=== PATIENT | male | born 1975 | race Caucasian/White ===

== ENCOUNTER 2018-08-20 11:17 | Emergency (ER) | payer BC ==
[2018-08-20 11:28] VITALS: BP 148/79
--- NOTE | 2018-08-20 11:55 | ED ---
HPI Chest Pain - HPI Summary HPI Summary: 43 yr old male with the complaint of chest pain. Onset of pain on and off since 4 days ago. The patient has had some palpitations, and dizziness. The patient has not had syncope. He complains of pain in the center of his chest, ache like. He has a family history of CAD. - History of Current Complaint Chief Complaint: UCChestPain Time Seen by Provider: 08/20/18 11:28 Pain Intensity: 2 - Allergy/Home Medications Allergies/Adverse Reactions: Allergies Allergy/AdvReac Type Severity Reaction Status Date / Time Penicillins Allergy Rash Verified 08/20/18 11:22 Home Medications: Home Medications Aspirin TAB* [Aspirin 325 MG TAB*] 325 mg PO DAILY 08/20/18 [History Confirmed 08/20/18] Cetirizine* [ZyrTEC 10 MG TAB*] 10 mg PO DAILY 08/20/18 [History Confirmed 08/20] PMH/Surg Hx/FS Hx/Imm Hx Infectious Disease History: No Infectious Disease History: Denies: Traveled Outside the [place] in Last 30 Days - Family History Known Family History: Positive: None - Social History Alcohol Use: Daily Alcohol Amount: 1 to 6 beers Substance Use Type: Reports: None Smoking Status (MU): Never Smoked Tobacco Review of Systems Positive: Chest Pain Positive: Shortness Of Breath All Other Systems Reviewed And Are Negative: Yes Physical Exam Triage Information Reviewed: Yes Vital Signs On Initial Exam: Initial Vitals Temp Pulse Resp BP Pulse Ox 98.6 F 84 18 148/79 99 08/20/18 11:19 08/20/18 11:19 08/20/18 11:19 08/20/18 11:19 08/20/18 11:19 Vital Signs Reviewed: Yes Appearance: Positive: Well-Appearing, No Pain Distress Skin: Positive: Warm, Skin Color Reflects Adequate Perfusion Head/Face: Positive: Normal Head/Face Inspection Eyes: Positive: EOMI ENT: Positive: Normal ENT inspection, TMs normal Neck: Positive: Nontender Respiratory/Lung Sounds: Positive: Clear to Auscultation, Breath Sounds Present Cardiovascular: Positive: RRR. Negative: Murmur Abdomen Description: Negative: Distended Musculoskeletal: Positive: Strength/ROM Intact. Negative: Edema Left, Edema Right Neurological: Positive: Normal, Sensory/Motor Intact, Alert, Oriented to Person Place, Time, CN Intact II-III, Normal Gait. Negative: Speech Normal Psychiatric: Positive: Normal - [place] Coma Scale Best Eye Response: 4 - Spontaneous Best Motor Response: 6 - Obeys Commands Best Verbal Response: 5 - Oriented Coma Scale Total: 15 Diagnostics - Vital Signs Vital Signs Temp Pulse Resp BP Pulse Ox 08/20/18 11:19 98.6 F 84 18 148/79 99 - Laboratory Lab Statement: Any lab studies that have been ordered have been reviewed, and results considered in the medical decision making process. - EKG 08/20/18 Cardiac Rate: NL EKG Rhythm: Sinus Rhythm ST Segment: Normal Ectopy: None Chest Pain Course/Dx - Course Course Of Treatment: 43 yr old male with chest pain. He signed out AMA. Refusal of ambulance to hospital for chest pain. - Diagnoses Provider Diagnoses: Chest pain Discharge - Sign-Out/Discharge Documenting (check all that apply): Patient Departure All imaging exams completed and their final reports reviewed: No Studies - Discharge Plan Condition: Good Disposition: AGAINST MEDICAL ADVICE Referrals: Boy Wen MD [Primary Care Provider] - 2 Days - Billing Disposition and Condition Condition: GOOD Disposition: Against Medical Advice
== END 2018-08-20 11:43 | disposition left against medical advice (07) ==
LOC: UCCORT 11:17
DX: R07.89 Other chest pain (principal); R00.2 Palpitations; R42 Dizziness and giddiness; Z88.0 Allergy status to penicillin; Z82.49 Family history of ischemic heart disease and other diseases of the circulatory system; Z79.82 Long term (current) use of aspirin
CPT/HCPCS: 99212; G0463